=== PATIENT | female | born 1985 | race Caucasian/White ===

== ENCOUNTER → 2016-09-26 | Day surgery (SDC) | payer SELFPAY ==
[~2016-09-26] VITALS: Ht 160 cm; Wt 52.0 kg
[~2016-09-26] MED LIST: BUPIVACAINE HCL PF 0.5% 30 ML VIAL ONE; CHLORHEXIDINE GLUCONATE 2 % 1 PACK (2 CLOTHS) TOPICAL PRN; CYAN100025 SL; DEXT 5%-NACL 0.45% 1000 ML INJ 1,000 ML IV SCH; FAMOTIDINE 20 MG/2 ML VIAL ONE; IBUP800T23 PO; INSULIN HUMAN REGULAR 1,000 UNITS/10 ML VIAL SQ PRN; LACTATED RINGER'S 1000 ML IV PRN; METOPROLOL TARTRATE 25 MG TAB PO PRN; MIDAZOLAM HCL 2 MG/2 ML VIAL ONE; MORPHINE SULFATE 4 MG/ML INJ ONE; NORC5TAB PO; ONDANSETRON HCL 4 MG/2 ML VIAL IV PUSH ONE; ONDANSETRON HCL 4 MG/2 ML VIAL ONE; POVIDONE IODINE 10% OINT 1 PACKET TOPICAL ONE; POVIDONE IODINE 5% (ANTISEPSIS KIT) 4 APPLICATIONS EACH NARE PRN; PROMETHAZINE INJ 25 MG/ML VIAL ONE; PROPOFOL 200 MG/20 ML AMP IV ONE; SODIUM CHLORID 0.9% 500 ML IV PRN; SODIUM CHLORIDE 0.9% FLUSH 5 ML FLUSH IVF PRN; SODIUM CHLORIDE 0.9% FLUSH 5 ML FLUSH IVF SCH; ceFAZolin 2 GM PREMIX 50 ML IV SCH; ePHEDrine/NS 25 MG/5 ML SYR IV ONE; fentaNYL CITRATE 250 MCG/5 ML AMP ONE
[2016-09-26 11:28] VITALS: BP 120/82; PULSE 71; RESP 18; TEMP 98.7; O2SAT 98
[2016-09-26 11:56] LABS: HEMATOCRIT 37.3 % (35.0-46.0); MEAN CELL VOLUME 89.3 FL (80.0-100.0); MEAN CORPUSCULAR HEMOGLOBIN 29.9 PG (27.0-34.0); MEAN CORPUSCULAR HGB CONC 33.5 % (32.0-36.0); PLATELET COUNT 193 TH/MM3 (150-450); RED BLOOD COUNT 4.17 MIL/MM3 (4.00-5.30); RED CELL DISTRIBUTION WIDTH 13.4 % (11.6-17.2); REVIEW FLAG FINAL; WHITE BLOOD COUNT 8.4 TH/MM3 (4.0-11.0)
--- NOTE | 2016-09-26 12:34 | HP.UPD ---
H&P Update Date: Sep 26, 2016 Note The Pre-Admit History and Physical Examination regarding the above named patient was reviewed (including, but not limited to, vital signs, medications, allergies, co-morbid conditions), and upon re-examination it is noted that: Indicated with "X" x - the patient's condition has not significantly changed since the last examination. [] - the patient's condition has changed since the last examination. Changes: Coco Tejada MD Sep 26, 2016 12:34
[2016-09-26 14:14] VITALS: TEMP 98
--- NOTE | 2016-09-26 14:23 | HHI.PR ---
Immediate Post Op Note Procedure Date: Sep 26, 2016 Pre Op Diagnosis: (1) Finger laceration involving tendon Post Op Diagnosis: (1) Finger laceration involving tendon Surgeon: Coco Tejada Tile Sprayer(s): None Procedure: Repair extensor tendon of right thumb. Anesthesia: General Drains: None Tourniquet time (min at mmHg) 37 minutes at 220 mmHg Patient to: PACU Patient Condition: Good Date/Time of Procedure: SEE SURGICAL CARE RECORD Coco Tejada MD Sep 26, 2016 14:23
[2016-09-26 15:15] VITALS: BP 111/69; PULSE 88; RESP 14; O2SAT 99
--- NOTE | 2016-09-27 13:08 | MP ---
cc: JEANETH CLARK M.D. DATE OF SURGERY 09/26/2016 PREOPERATIVE DIAGNOSIS Laceration of the extensor apparatus of the right thumb. POSTOPERATIVE DIAGNOSIS Laceration of the extensor apparatus of the right thumb. PROCEDURE Repair of the extensor tendon of the right thumb ANESTHESIA General SURGEON Jeaneth Clark MD INDICATIONS This is a 30-year-old female with traumatic laceration to the right thumb. FINDINGS At the completion of the procedure, the tendon ends were approximated. TOURNIQUET TIME 37 minutes PROCEDURE The patient was seen preoperatively where the site and side were identified and marked. The patient was then taken to the operating room, placed in a supine position. Her identity was checked against the arm band and the consent form site and side confirmed, time-out called prior to beginning the procedure. The right upper extremity was prepped with Hibiclens and draped in the usual sterile fashion. Bupivacaine 0.5% plain was used to make a block both on the palmar surface of the thumb as well as dorsally. The arm was then exsanguinated and the tourniquet inflated to 220 mmHg. The sutures, which had been placed, were removed. The wound edges were sharply debrided. The wound was copiously irrigated and the edges of the cut surfaces were debrided sharply as an excisional debridement. The capsule was then repaired with 4-0 Vicryl suture material in interrupted fashion. Then three [id number] 4-0 Prolene sutures were placed by going through the skin proximally, then the tendon distally and back to the proximal tendon and then out through the distal skin. These were placed with long clamps. The thumb was then placed in an extended position. The ends were pulled together and there was excellent approximation. The wound was then closed with interrupted and running 5-0 nylon suture. Povidone-iodine ointment was placed on the stitches along with a bolus of Telfa rolled into a cylinder. The sutures were then tied sequentially over the bolus. Tourniquet was released after 37 minutes of tourniquet time. Pressure was applied. There was no evidence of any significant oozing and a dressing was applied using 4x4s, hand wrap and thumb spica splint to keep the wrist and thumb in extension. The patient was then taken from the operating room to the recovery room in satisfactory condition having tolerated the procedure well. Postoperative instructions include keeping arm elevated, keeping the area clean and dry and returning in several days for follow up. MD FRAN Quiroz/DAVID /2:30 PM /1:05 PM
== END | disposition home or self-care (01) ==
LOC: PHSDC 10:36
PROVIDERS: ATTEND Specialist
DX: S56.321A Laceration of extensor or abductor muscles, fascia and tendons of right thumb at forearm level, initial encounter (principal); W18.02XA Striking against glass with subsequent fall, initial encounter; Y93.89 Activity, other specified; Z01.818 Encounter for other preprocedural examination
CPT/HCPCS: 01810; 26410; 36415; 85027; J0690; J2250; J2270; J2405; J2550; J3010; J7120